=== PATIENT | male | born 1950 | race Caucasian/White ===

== ENCOUNTER → 2018-03-14 16:33 | Outpatient (CLI) | payer OTHER, SELFPAY ==
--- NOTE | 2018-03-14 16:39 | DI.MRI.S_ITS ---
PROCEDURE: MR THORACIC SPINE WO CON INDICATIONS: CERVICAL/THORCIC/LUMBAR STENOSIS TECHNIQUE: Noncontrast sagittal T1 spine echo and T2 fast spin echo, sagittal STIR, axial T1 and T2 fast spin echo through the thoracic spine. COMPARISON: None. FINDINGS: Image quality: Excellent. Alignment and Curvature: There is normal bony alignment. Bone Marrow: Marrow is of normal overall signal. No acute vertebral body compression fractures. Spinal Cord: Visualized spinal cord is normal in size and signal. Paraspinous Soft Tissues: There is a 20 mm diameter right adrenal nodule, which appears to demonstrate high signal intensity on T1 sequences. Miscellaneous: On multilevel disc desiccation is present throughout the thoracic spine. axial images, central canal and foramina appear widely patent at all scanned levels. IMPRESSION: 1. Multilevel degenerative disc disease. No significant canal, nor foraminal stenosis. No neural impingement. 2. 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 This could be confirmed with adrenal protocol MRI, if clinically indicated. Dictated by: Mckenna Mcginnis M.D. on 03/15/2018 at 13:00 Approved by: Mckenna Mcginnis M.D. on 03/15/2018 at 13:12
--- NOTE | 2018-03-14 16:47 | DI.MRI.S_ITS ---
PROCEDURE: MR LUMBAR SPINE WO CON INDICATIONS: LOW BACK PAIN TECHNIQUE: Noncontrast sagittal T1 spin echo and T2 fast echo, sagittal STIR, axial T1 and T2 fast spin echo through the lumbar spine. In cases with scoliosis, additional coronal T2 fast spin echo may be performed. COMPARISON: [facility], CR, SPINE LUMB MIN 4VW, 11/09/2016, 11:18. [facility], , L-SPINE WITHOUT CONTRAST, 12/10/2016, 8:56. FINDINGS: Image quality: Excellent. Alignment and Curvature: There is normal bony alignment. Bone Marrow: Marrow is of normal overall signal. No acute vertebral body compression fractures. There is mild reactive signal within the endplates adjacent to the L2-L3 and L3-L4 intervertebral discs. Spinal Cord: Conus medullaris terminates at the upper L1 level. Visualized cord demonstrates normal signal and size. Paraspinous Soft Tissues: No paravertebral masses. L1-L2: Disc desiccation and diffuse disc bulge. Increased, mild canal stenosis. Mild foraminal stenoses bilaterally, which is increased. L2-L3: Increased disc desiccation and diffuse disc bulge. Bilateral facet hypertrophy. Increased, mild canal stenosis. Increased, mild bilateral foraminal stenosis. L3-L4: Disc desiccation and diffuse disc bulge with superimposed broad-based right far lateral protrusion. Bilateral increased facet hypertrophy. Increased mild canal stenosis. No change in moderate right and mild left foraminal stenosis. L4-L5: Disc desiccation and diffuse disc bulge. Bilateral facet hypertrophy. Mild canal stenosis. Moderate foraminal stenoses bilaterally. No change. L5-S1: Disc desiccation and diffuse disc bulge, which is slightly increased. Bilateral facet hypertrophy. No change in mild canal stenosis. No change in moderate to severe left and moderate right foraminal stenosis. IMPRESSION: 1. Multilevel degenerative disc and facet disease. 2. Mild multilevel canal stenoses as above. 3. Multilevel foraminal stenoses as described above, worst on the right at L3-L4, bilaterally L4-L5, and at L5-S1. Dictated by: Mckenna Mcginnis M.D. on 03/15/2018 at 13:14 Approved by: Mckenna Mcginnis M.D. on 03/15/2018 at 13:19
--- NOTE | 2018-03-14 16:47 | DI.MRI.S_ITS ---
PROCEDURE: MR CERVICAL SPINE WO CON INDICATIONS: NECK PAIN TECHNIQUE: Noncontrast sagittal T1 spin echo and T2 fast spin echo, sagittal STIR, foraminal oblique sagittal T2 fast spin echo, and axial gradient echo or T2 fast spin echo through the cervical spine. COMPARISON: [facility], , C-SPINE WITHOUT CONTRAST, 12/27/2016, 7:08. FINDINGS: Image quality: Excellent. Alignment and Curvature: There is minimal grade 1 anterolisthesis of C5 on C6, as before, and otherwise normal bony alignment. Bone Marrow: Marrow demonstrates normal overall signal. Mild reactive signal within the endplates adjacent to the C2-C3, C3-C4, C4-C5, C5-C6, and C6-C7 intervertebral discs is present. Spinal Cord: Visualized spinal cord has normal size and signal. No cerebellar tonsillar herniation. Paraspinous Soft Tissues: No paravertebral masses. Prevertebral soft tissues are normal in thickness. C2-C3: Disc desiccation and mild facet hypertrophy bilaterally. Mild foraminal stenoses bilaterally. Minimal canal stenosis. No change. C3-C4: Congenital canal stenosis. Disc desiccation and diffuse disc bulge with superimposed right posterolateral protrusion/osteophyte. Bilateral facet and uncovertebral hypertrophy. There is overall moderate canal stenosis. There is moderate right and mild left foraminal stenosis, which is unchanged. C4-C5: Congenital canal stenosis. Left greater than right facet and uncovertebral hypertrophy. Disc desiccation and diffuse disc bulge. There is overall moderate canal stenosis. There is moderate to severe foraminal stenosis bilaterally. No change. C5-C6: Congenital canal stenosis. Disc desiccation and diffuse disc bulge. Bilateral facet and uncovertebral hypertrophy. Mild canal stenosis. Severe left and moderate right foraminal stenosis. No change. C6-C7: Congenital canal stenosis. Disc and loss and desiccation, as well as diffuse disc bulge. Bilateral facet and uncovertebral hypertrophy. Moderate canal stenosis. Severe left and moderate right foraminal stenosis. No change. C7-T1: Disc desiccation and diffuse disc bulge. Bilateral facet hypertrophy. Mild canal stenosis. Mild foraminal stenoses bilaterally. No change. IMPRESSION: 1. Diffuse congenital canal stenosis with superimposed disc and facet disease, as well as uncovertebral hypertrophy. 2. No change in multilevel moderate canal stenoses. 3. No change in multilevel moderate to severe foraminal stenoses. Dictated by: Mckenna Mcginnis M.D. on 03/15/2018 at 12:53 Approved by: Mckenna Mcginnis M.D. on 03/15/2018 at 12:59
== END ==
PROVIDERS: Family Provider Internal Medicine Cardiovascular Disease; PCP Family Medicine; Visit Provider Family Medicine
DX: M48.02 Spinal stenosis, cervical region (principal); M47.812 Spondylosis without myelopathy or radiculopathy, cervical region; M51.34 Other intervertebral disc degeneration, thoracic region; M51.36 Other intervertebral disc degeneration, lumbar region; M48.061 Spinal stenosis, lumbar region without neurogenic claudication; M99.73 Connective tissue and disc stenosis of intervertebral foramina of lumbar region
CPT/HCPCS: 72141; 72146; 72148

== ENCOUNTER → 2018-04-10 | Outpatient (CLI) | payer OTHER, SELFPAY ==
--- NOTE | 2018-04-10 10:04 | DI.MRI.S_ITS ---
PROCEDURE: MR ABDOMEN WO CON INDICATIONS: 67-year-old male with 20 mm right adrenal nodule on thoracic spine MRI. TECHNIQUE: Coronal HASTE, axial 2-D FLASH in- and [id number] with subtractions from the hepatic dome to the iliac crests. COMPARISON: [facility], MR, L-SPINE WITHOUT CONTRAST, 12/10/2016, 8:56. [facility], MR, MR THORACIC SPINE WO CON, 03/14/2018, 17:10. FINDINGS: Image quality: Excellent. Adrenal glands: The right and left adrenal glands appear normal. Specifically, a right adrenal nodule is not identified to corroborate previous examination finding. Other solid organs: Liver is normal in overall size, without fatty infiltration. Gallbladder contains a solitary 9 mm dependent gallstone. Biliary system is non dilated. Pancreas is normal in morphology. Spleen is normal in size. There is asymmetric moderate left renal atrophy, without hydronephrosis. Nodes and vessels: No retroperitoneal or mesenteric adenopathy by size criteria. Aorta and inferior vena cava are normal in size. Bowel and peritoneum: Unenhanced bowel loops are normal in caliber. No free fluid. Lung bases: No basal pleural effusions. Heart size is normal. Patient is status post fundoplication surgery. Bones and soft tissues: No ventral hernias. Bone marrow is of normal overall signal. IMPRESSION: 1. Current study does not demonstrate a discrete right adrenal nodule to correspond with previously reported finding. No further imaging followup is needed. 2. Solitary 9 mm dependent gallstone. 3. Asymmetric left renal cortical atrophy may reflect sequelae of remote pyelonephritis or chronic renal arterial insufficiency. Dictated by: Farhan Clark M.D. on 04/10/2018 at 11:43 Approved by: Farhan Clark M.D. on 04/10/2018 at 12:06
== END ==
PROVIDERS: Family Provider Internal Medicine Cardiovascular Disease; PCP Family Medicine; Visit Provider Family Medicine
DX: R93.8 Abnormal findings on diagnostic imaging of other specified body structures (principal); E27.9 Disorder of adrenal gland, unspecified
CPT/HCPCS: 74181

== ENCOUNTER 2018-04-13 10:30 | Outpatient (RCR) | payer OTHER, SELFPAY ==
--- NOTE | 2018-02-28 15:51 | PT.OTN ---
Current Diagnoses Bicipital tendinitis, unspecified shoulder (03/01/18) Transition note: On February 28, 2018 our therapy services consisting of Speech, Occupational, and Physical Therapy transitioned from the [employer] electronic documentation system to a new [employer] electronic documentation system.?? All documentation prior to February 28 can be found under [employer] saved data. From February 28 forward all medical record documentation will be in [employer] 6.1.
--- NOTE | 2018-03-01 13:58 | PT.OTN ---
Current Diagnoses Bicipital tendinitis, unspecified shoulder (03/01/18) Physical Therapy Treatment Note PT-OP-A Visit Information Start: 03/01/18 13:20 Freq: Status: Active Protocol: Activity Type Activity Date Activity User E-Sign Co-Sign Detail Recorded Client Recorded Date Recorded By Document 03/01/18 13:21 AMB [email or web address] 03/01/18 13:57 AMB 03/01/18 13:21 Out-Patient Physical Therapy Visit Information [Visit Information] -Visit Type Treatment Note -Visit Note 12 visits authorized, G codes: visit . Insurance authorization expires 04/25/18 . POC expires April 05. -Visit Start Time 10:30 -Visit Stop Time 11:20 -Total Visit Minutes 50 -Visit Number 2 [Evaluation Information] -Evaluation Date 02/22/18 PT-OP-C Subjective Start: 03/01/18 13:20 Freq: Status: Active Protocol: Activity Type Activity Date Activity User E-Sign Co-Sign Detail Recorded Client Recorded Date Recorded By Document 03/01/18 13:21 AMB [email or web address] 03/01/18 13:57 AMB 03/01/18 13:21 OP-PT Subjective [Patient Comments] -Patient Comments Patient states he is frustrated today because he has been on the phone for an hour and a half with [employer] insurance regarding his possible upcoming cervical surgery. He states that two days ago he woke up with L shoulder pain, insidious onset . His main complaint with his right shoulder is difficulty getting to sleep and staying asleep. -Patient Reported Progress Same PT-OP-Q Treatments Start: 03/01/18 13:20 Freq: Status: Active Protocol: Activity Type Activity Date Activity User E-Sign Co-Sign Detail Recorded Client Recorded Date Recorded By Document 03/01/18 13:21 AMB [email or web address] 03/01/18 13:57 AMB 03/01/18 13:21 Therapeutic Exercises [Sitting Exercises] 4 -Sitting Exercise Name Shoulder scaption -Side right -Resistance AROM -Reps/Minutes 2x10 -Comments shoulder height 3 -Sitting Exercise Name Shoulder flexion -Side right -Resistance AROM -Reps/Minutes 2x10 -Comments shoulder height 2 -Sitting Exercise Name Biceps curl -Side right -Resistance 5# -Reps/Minutes 2x10 1 -Sitting Exercise Name Haylee- flexion and abduction -Side bilateral -Reps/Minutes 5 minutes [Standing Exercises] 1 -Standing Exercise Name Shoulder isometrics -Side bilateral -Resistance moderate -Reps/Minutes 10 minutes -Comments shoulder extension, flexion, ER Therapeutic Activity [Therapeutic Activity] 1 -Name Sleep positioning/ propping with pillows -Reps/Minutes 5 Manual Therapy Treatment [Soft Tissue Mobilization] 1 -Body Location R Biceps -Mobilization Type Cross-Friction -Intensity/Depth Moderate -Body Position Supine [Joint Mobilizations] 1 -Joint glenohumeral -Direction AP, inferior -Grade III -Body Position Supine -Reps/Duration 5 minutes -Comments Left PT-OP-R Modalities Start: 03/01/18 13:20 Freq: Status: Active Protocol: Activity Type Activity Date Activity User E-Sign Co-Sign Detail Recorded Client Recorded Date Recorded By Document 03/01/18 13:57 AMB [email or web address] 03/01/18 13:58 AMB 03/01/18 13:57 Hot Pack/Cold Pack [Treatment] 1 -Location Bilateral shoulders -Patient Position Hooklying -Treatment Duration (minutes) 10 -Patient Tolerance Good -Comments cold pack PT-OP-T Assessment and Plan Start: 03/01/18 13:20 Freq: Status: Active Protocol: Activity Type Activity Date Activity User E-Sign Co-Sign Detail Recorded Client Recorded Date Recorded By Document 03/01/18 13:21 AMB [email or web address] 03/01/18 13:57 AMB 03/01/18 13:21 Physical Therapy Assessment [Assessment Summary] -Assessment Pt verbalizes doubt that PT will be especially helpful due to his concerns over his cervical spine. Encouraged him in icing and isometrics HEP to work toward less R shoulder pain with sleeping. Physical Therapy Plan [Next Visit Focus/Plan] -Next Visit Plan Progress HEP.
--- NOTE | 2018-03-07 08:51 | PT.OTN ---
Current Diagnoses Bicipital tendinitis, unspecified shoulder (03/06/18) Physical Therapy Treatment Note PT-OP-A Visit Information Start: 03/01/18 13:20 Freq: Status: Active Protocol: Activity Type Activity Date Activity User E-Sign Co-Sign Detail Recorded Client Recorded Date Recorded By Document 03/06/18 11:15 AMB [id number] 03/07/18 08:34 AMB 03/06/18 11:15 Out-Patient Physical Therapy Visit Information [Visit Information] -Visit Type Treatment Note -Visit Note POC ends 04/05, insurance auth ends 04/25. G code visit 01/07 . 12 visits authorized total. -Visit Start Time 11:15 -Visit Stop Time 12:00 -Total Visit Minutes 45 -Visit Number 3 [Evaluation Information] -Evaluation Date 02/22/18 PT-OP-C Subjective Start: 03/01/18 13:20 Freq: Status: Active Protocol: Activity Type Activity Date Activity User E-Sign Co-Sign Detail Recorded Client Recorded Date Recorded By Document 03/06/18 11:15 AMB [id number] 03/07/18 08:47 AMB 03/06/18 11:15 OP-PT Subjective [Patient Comments] -Patient Comments Patient states both his right and left shoulder have been irritated with all the lifting he is doing for his move. He is seeing an orthopedic surgeon tomorrow. -Patient Reported Progress Same PT-OP-Q Treatments Start: 03/01/18 13:20 Freq: Status: Active Protocol: Activity Type Activity Date Activity User E-Sign Co-Sign Detail Recorded Client Recorded Date Recorded By Document 03/06/18 11:15 AMB [email or web address] 03/07/18 08:42 AMB 03/06/18 11:15 Cardio Equipment [Upper Body Ergometer (UBE)] -Duration (Minutes) 5 Therapeutic Exercises [Supine Exercises] 1 -Supine Exercise Name scapular protraction -Resistance 2# -Reps/Minutes 2x10 [Sitting Exercises] 3 -Sitting Exercise Name Shoulder flexion -Side right -Resistance AROM -Reps/Minutes 2x10 -Comments shoulder height [Standing Exercises] 3 -Standing Exercise Name theraband shoulder ER -Side bilateral -Resistance #1 -Reps/Minutes 2x8 2 -Standing Exercise Name theraband shoulder extension -Side bilateral -Resistance #1 -Reps/Minutes 2x10 Manual Therapy Treatment [Soft Tissue Mobilization] 2 -Body Location L upper trapezius -Mobilization Type Sustained Pressure -Intensity/Depth Moderate -Body Position Supine 1 -Body Location R Biceps -Mobilization Type Cross-Friction -Intensity/Depth Moderate -Body Position Supine [Joint Mobilizations] 1 -Joint glenohumeral -Direction AP, inferior -Grade III -Body Position Supine -Reps/Duration 5 minutes -Comments Right PT-OP-R Modalities Start: 03/01/18 13:20 Freq: Status: Active Protocol: Activity Type Activity Date Activity User E-Sign Co-Sign Detail Recorded Client Recorded Date Recorded By Document 03/01/18 13:57 AMB [email or web address] 03/01/18 13:58 AMB 03/01/18 13:57 Hot Pack/Cold Pack [Treatment] 1 -Location Bilateral shoulders -Patient Position Hooklying -Treatment Duration (minutes) 10 -Patient Tolerance Good -Comments cold pack PT-OP-T Assessment and Plan Start: 03/01/18 13:20 Freq: Status: Active Protocol: Activity Type Activity Date Activity User E-Sign Co-Sign Detail Recorded Client Recorded Date Recorded By Document 03/06/18 11:15 AMB [email or web address] 03/07/18 08:50 AMB 03/06/18 11:15 Physical Therapy Assessment [Assessment Summary] -Assessment Pt continues to be painful in bilateral shoulders. More tendinitis in the R shoulder, and seems to be more upper trapezius on the L shoulder. Physical Therapy Plan [Next Visit Focus/Plan] -Next Visit Plan Follow up on pt 's MD appt.
--- NOTE | 2018-03-10 10:18 | PT.OTN ---
Current Diagnoses Bicipital tendinitis, unspecified shoulder (03/09/18) Physical Therapy Treatment Note PT-OP-A Visit Information Start: 03/01/18 13:20 Freq: Status: Active Protocol: Document 03/09/18 10:30 AMB (Rec: 03/09/18 10:38 AMB [id number]) Out-Patient Physical Therapy Visit Information Visit Information Visit Type Treatment Note Visit Note POC ends 04/05, insurance auth ends 04/25. G code visit 02/07. 12 visits authorized total. Visit Start Time 10:30 Visit Stop Time 11:15 Total Visit Minutes 45 Visit Number 4 Evaluation Information Evaluation Date 02/22/18 PT-OP-C Subjective Start: 03/01/18 13:20 Freq: Status: Active Protocol: Document 03/09/18 10:30 AMB (Rec: 03/09/18 10:38 AMB [id number]) OP-PT Subjective Patient Comments Patient Comments The patient states he just got a CPAP last night, so didn't sleep well. Getting an MRIs next week, then going to see the neurosurgeon afterwards. 01/07 L , 05/09 R. PT-OP-Q Treatments Start: 03/01/18 13:20 Freq: Status: Active Protocol: Document 03/09/18 10:30 AMB (Rec: 03/10/18 10:07 AMB [id number]) Cardio Equipment Upper Body Ergometer (UBE) Duration (Minutes) 5 Therapeutic Exercises Supine Exercises 1 Supine Exercise Name scapular protraction Resistance 2# Reps/Minutes 2x10 Sitting Exercises 3 Sitting Exercise Name Shoulder flexion Side right Resistance 2# Reps/Minutes 2x10 Comments shoulder height 2 Sitting Exercise Name Biceps curl Side right Resistance 5# Reps/Minutes 2x10 Standing Exercises 3 Standing Exercise Name theraband shoulder ER Side bilateral Resistance #1 Reps/Minutes 2x12 2 Standing Exercise Name theraband shoulder extension Side bilateral Resistance #1 Reps/Minutes 2x12 Manual Therapy Treatment Soft Tissue Mobilization 2 Body Location L upper trapezius Mobilization Type Sustained Pressure Intensity/Depth Moderate Body Position Supine 1 Body Location R Biceps Mobilization Type Cross-Friction Intensity/Depth Moderate Body Position Supine Joint Mobilizations 1 Joint glenohumeral Direction AP, inferior Grade III Body Position Supine Reps/Duration 5 minutes Comments Right PT-OP-R Modalities Start: 03/01/18 13:20 Freq: Status: Active Protocol: Document 03/09/18 10:30 AMB (Rec: 03/10/18 10:08 AMB [id number]) Hot Pack/Cold Pack Treatment 1 Location Bilateral shoulders Patient Position Hooklying Treatment Duration (minutes) 10 Patient Tolerance Good Comments cold pack PT-OP-T Assessment and Plan Start: 03/01/18 13:20 Freq: Status: Active Protocol: Document 03/09/18 10:30 AMB (Rec: 03/10/18 10:18 AMB [id number]) Physical Therapy Assessment Assessment Summary Assessment The patient tolerated a slight increase in resistance today. Continues to work on packing which aggravates his pain. Physical Therapy Plan Next Visit Focus/Plan Next Visit Plan Progress resistance exercises, reassess HEP.
--- NOTE | 2018-03-13 12:43 | PT.OTN ---
Current Diagnoses Bicipital tendinitis, unspecified shoulder (03/13/18) Physical Therapy Treatment Note PT-OP-A Visit Information Start: 03/01/18 13:20 Freq: Status: Active Protocol: Document 03/13/18 10:30 AMB (Rec: 03/13/18 10:30 AMB [id number]) Out-Patient Physical Therapy Visit Information Visit Information Visit Type Treatment Note Visit Note POC ends 04/05, insurance auth ends 04/25. G code visit 03/09. 12 visits authorized total. Visit Start Time 10:30 Visit Stop Time 11:15 Total Visit Minutes 45 Visit Number 5 PT-OP-C Subjective Start: 03/01/18 13:20 Freq: Status: Active Protocol: Document 03/13/18 10:34 AMB (Rec: 03/13/18 10:34 AMB [id number]) OP-PT Subjective Patient Comments Patient Comments Getting MRI tomorrow. PT-OP-Q Treatments Start: 03/01/18 13:20 Freq: Status: Active Protocol: Document 03/13/18 10:35 AMB (Rec: 03/13/18 11:11 AMB [id number]) Cardio Equipment Upper Body Ergometer (UBE) Duration (Minutes) 5 Therapeutic Exercises Supine Exercises 2 Supine Exercise Name Alternating isometrics Side right Reps/Minutes 2 x 10 1 Supine Exercise Name scapular protraction Resistance 2# Reps/Minutes 2x10 Sitting Exercises 3 Sitting Exercise Name Shoulder flexion Side right Resistance 2# Reps/Minutes 2x10 Comments shoulder height 2 Sitting Exercise Name Biceps curl Side right Resistance 5# Reps/Minutes 2x10 Standing Exercises 3 Standing Exercise Name theraband shoulder ER Side bilateral Resistance #1 Reps/Minutes 2x12 2 Standing Exercise Name theraband shoulder extension Side bilateral Resistance #1 Reps/Minutes 2x12 1 Standing Exercise Name Shoulder isometrics Side bilateral Resistance moderate Reps/Minutes 5 minutes Comments shoulder extension, flexion, ER, IR Manual Therapy Treatment Soft Tissue Mobilization 1 Body Location R Biceps Mobilization Type Cross-Friction Intensity/Depth Moderate Body Position Supine Joint Mobilizations 1 Joint glenohumeral Direction AP, inferior Grade III Body Position Supine Reps/Duration 5 minutes Comments Right Taping Kinesiotape Body Location R shoulder Type of Tape Kinesio Tape Comments Y to support GH joint, I to promote scapular retraction PT-OP-R Modalities Start: 03/01/18 13:20 Freq: Status: Active Protocol: Document 03/13/18 10:34 AMB (Rec: 03/13/18 12:34 AMB [email or web address]) Hot Pack/Cold Pack Treatment 1 Location Bilateral shoulders Patient Position Hooklying Treatment Duration (minutes) 10 Patient Tolerance Good Comments cold pack PT-OP-T Assessment and Plan Start: 03/01/18 13:20 Freq: Status: Active Protocol: Document 03/13/18 12:35 AMB (Rec: 03/13/18 12:43 AMB [email or web address]) Physical Therapy Assessment Assessment Summary Assessment Pt fatigues quickly with higher resistance shoulder strengthening. Continues to be flared up from moving furniture. Physical Therapy Plan Next Visit Focus/Plan Next Visit Plan Progress resistance exercises as tolerated
--- NOTE | 2018-03-16 13:22 | PT.OTN ---
Current Diagnoses Bicipital tendinitis, unspecified shoulder (03/16/18) Physical Therapy Treatment Note PT-OP-A Visit Information Start: 03/01/18 13:20 Freq: Status: Active Protocol: Document 03/16/18 10:30 AMB (Rec: 03/16/18 10:31 AMB [id number]) Out-Patient Physical Therapy Visit Information Visit Information Visit Type Treatment Note Visit Note POC ends 04/05, insurance auth ends 04/25. G code visit 04/09. 12 visits authorized total. Visit Start Time 10:30 Visit Stop Time 11:15 Total Visit Minutes 45 Visit Number 6 Evaluation Information Evaluation Date 02/22/18 PT-OP-C Subjective Start: 03/01/18 13:20 Freq: Status: Active Protocol: Document 03/16/18 10:30 AMB (Rec: 03/16/18 10:38 AMB [id number]) OP-PT Subjective Patient Comments Patient Comments The patient states that he had his MRI. PT-OP-Q Treatments Start: 03/01/18 13:20 Freq: Status: Active Protocol: Document 03/16/18 10:30 AMB (Rec: 03/16/18 13:22 AMB [email or web address]) Cardio Equipment Upper Body Ergometer (UBE) Duration (Minutes) 5 Therapeutic Exercises Sitting Exercises 2 Sitting Exercise Name Biceps curl Side right Resistance 5# Reps/Minutes 3x10 Standing Exercises 3 Standing Exercise Name theraband shoulder ER Side bilateral Resistance #1 Reps/Minutes 2x12 2 Standing Exercise Name theraband shoulder extension Side bilateral Resistance #1 Reps/Minutes 2x12 1 Standing Exercise Name Shoulder isometrics Side bilateral Resistance moderate Reps/Minutes 5 minutes Comments shoulder extension, flexion, ER, IR Manual Therapy Treatment Soft Tissue Mobilization 1 Body Location R Biceps Mobilization Type Cross-Friction Intensity/Depth Moderate Body Position Supine Joint Mobilizations 1 Joint glenohumeral Direction AP, inferior Grade III Body Position Supine Reps/Duration 5 minutes Comments Right PT-OP-R Modalities Start: 03/01/18 13:20 Freq: Status: Active Protocol: Document 03/16/18 13:22 AMB (Rec: 03/16/18 13:22 AMB [email or web address]) Hot Pack/Cold Pack Treatment 1 Location Bilateral shoulders Patient Position Hooklying Treatment Duration (minutes) 10 Patient Tolerance Good Comments cold pack PT-OP-T Assessment and Plan Start: 03/01/18 13:20 Freq: Status: Active Protocol: Document 03/16/18 10:30 AMB (Rec: 03/16/18 13:22 AMB [email or web address]) Physical Therapy Assessment Assessment Summary Assessment Pt continues to fatigue, but tolerated more reps today. Physical Therapy Plan Next Visit Focus/Plan Next Visit Plan Progress resistance exercises as tolerated
--- NOTE | 2018-03-20 15:11 | PT.OTN ---
Current Diagnoses Bicipital tendinitis, unspecified shoulder (03/20/18) Physical Therapy Treatment Note PT-OP-A Visit Information Start: 03/01/18 13:20 Freq: Status: Active Protocol: Document 03/20/18 12:57 AMB (Rec: 03/20/18 12:57 AMB [email or web address]) Out-Patient Physical Therapy Visit Information Visit Information Visit Type Treatment Note Visit Note POC ends 04/05, insurance auth ends 04/25. G code visit 04/09. 12 visits authorized total. Visit Start Time 13:00 Visit Stop Time 13:45 Total Visit Minutes 45 Visit Number 7 Evaluation Information Evaluation Date 02/22/18 PT-OP-C Subjective Start: 03/01/18 13:20 Freq: Status: Active Protocol: Document 03/20/18 13:00 AMB (Rec: 03/20/18 13:07 AMB [id number]) OP-PT Subjective Patient Comments Patient Comments The patient reports he has 6 bulging discs in this back/ neck. PT-OP-Q Treatments Start: 03/01/18 13:20 Freq: Status: Active Protocol: Document 03/20/18 13:00 AMB (Rec: 03/20/18 15:10 AMB [email or web address]) Cardio Equipment Upper Body Ergometer (UBE) Duration (Minutes) 5 Therapeutic Exercises Sitting Exercises 2 Sitting Exercise Name Biceps curl Side right Resistance 5# Reps/Minutes 3x10 Standing Exercises 3 Standing Exercise Name theraband shoulder ER Side bilateral Resistance #1 Reps/Minutes 2x12 2 Standing Exercise Name theraband shoulder extension Side bilateral Resistance #1 Reps/Minutes 2x12 1 Standing Exercise Name Shoulder isometrics Side bilateral Resistance moderate Reps/Minutes 5 minutes Comments shoulder extension, flexion, ER, IR Manual Therapy Treatment Soft Tissue Mobilization 1 Body Location R Biceps Mobilization Type Cross-Friction Intensity/Depth Moderate Body Position Supine Joint Mobilizations 1 Joint glenohumeral Direction AP, inferior Grade III Body Position Supine Reps/Duration 5 minutes Comments Right PT-OP-R Modalities Start: 03/01/18 13:20 Freq: Status: Active Protocol: Document 03/20/18 13:00 AMB (Rec: 03/20/18 15:11 AMB [email or web address]) Hot Pack/Cold Pack Treatment 1 Location Bilateral shoulders Patient Position Hooklying Treatment Duration (minutes) 10 Patient Tolerance Good Comments cold pack PT-OP-T Assessment and Plan Start: 03/01/18 13:20 Freq: Status: Active Protocol: Document 03/20/18 13:00 AMB (Rec: 03/20/18 15:10 AMB [email or web address]) Physical Therapy Assessment Assessment Summary Assessment Difficult to progress patient today as he was quite sore from his weekend packing Physical Therapy Plan Next Visit Focus/Plan Next Visit Plan Follow up on visit with neurosurgeon- are they pursuing surgery. Please Sign and Return: I have reviewed this Plan of Care and certify that the skilled therapy services above are required to meet the patient???s needs. Physician Signature Date Printed Name and Credentials Clinical Instructor Signature Printed Name and Credentials
--- NOTE | 2018-03-23 13:28 | PT.OTN ---
Current Diagnoses Bicipital tendinitis, left shoulder (03/23/18) Physical Therapy Treatment Note PT-OP-A Visit Information Start: 03/01/18 13:20 Freq: Status: Active Protocol: Document 03/23/18 10:30 AMB (Rec: 03/23/18 10:39 AMB [id number]) Out-Patient Physical Therapy Visit Information Visit Information Visit Type Treatment Note Visit Note POC ends 04/05, insurance auth ends 04/25. G code visit 06/09. 12 visits authorized total. Visit Start Time 10:30 Visit Stop Time 11:15 Total Visit Minutes 45 Visit Number 8 Evaluation Information Evaluation Date 02/22/18 PT-OP-C Subjective Start: 03/01/18 13:20 Freq: Status: Active Protocol: Document 03/23/18 10:30 AMB (Rec: 03/23/18 10:54 AMB [id number]) OP-PT Subjective Patient Comments Patient Comments Pt reports he is done moving things for the next week or so , then he will be moving furniture. PT-OP-Q Treatments Start: 03/01/18 13:20 Freq: Status: Active Protocol: Document 03/23/18 10:30 AMB (Rec: 03/23/18 13:26 AMB [email or web address]) Therapeutic Exercises Supine Exercises 1 Supine Exercise Name scapular protraction Resistance 2# Reps/Minutes 2x10 Sitting Exercises 2 Sitting Exercise Name Biceps curl Side bilateral Resistance 5# Reps/Minutes 3x10 Standing Exercises 3 Standing Exercise Name theraband shoulder ER Side bilateral Resistance #1 Reps/Minutes 2x12 2 Standing Exercise Name theraband shoulder extension Side bilateral Resistance #1 Reps/Minutes 2x12 1 Standing Exercise Name Shoulder isometrics Side bilateral Resistance moderate Reps/Minutes 5 minutes Comments shoulder extension, flexion, ER, IR Manual Therapy Treatment Soft Tissue Mobilization 1 Body Location R Biceps Mobilization Type Cross-Friction Intensity/Depth Moderate Body Position Supine Joint Mobilizations 1 Joint glenohumeral Direction AP, inferior Grade III Body Position Supine Reps/Duration 5 minutes Comments Right PT-OP-R Modalities Start: 03/01/18 13:20 Freq: Status: Active Protocol: Document 03/23/18 10:30 AMB (Rec: 03/23/18 13:26 AMB [email or web address]) Hot Pack/Cold Pack Treatment 1 Location Bilateral shoulders Patient Position Hooklying Treatment Duration (minutes) 10 Patient Tolerance Good Comments cold pack PT-OP-T Assessment and Plan Start: 03/01/18 13:20 Freq: Status: Active Protocol: Document 03/23/18 10:30 AMB (Rec: 03/23/18 13:21 AMB [email or web address]) Physical Therapy Assessment Assessment Summary Assessment Pt tolerating light strengthening, but overhead remains painful. Physical Therapy Plan Next Visit Focus/Plan Next Note Type Treatment Note Next Visit Plan Reassess HEP Please Sign and Return: I have reviewed this Plan of Care and certify that the skilled therapy services above are required to meet the patient???s needs. Physician Signature Date Printed Name and Credentials Clinical Instructor Signature Printed Name and Credentials
--- NOTE | 2018-03-30 16:08 | PT.OTN ---
Current Diagnoses Bicipital tendinitis, left shoulder (03/30/18) Physical Therapy Treatment Note PT-OP-A Visit Information Start: 03/01/18 13:20 Freq: Status: Active Protocol: Document 03/30/18 10:30 AMB (Rec: 03/30/18 10:39 AMB [id number]) Out-Patient Physical Therapy Visit Information Visit Information Visit Type Treatment Note Visit Note POC ends 04/05, insurance auth ends 04/25. G code visit 07/10. 12 visits authorized total. Visit Start Time 10:30 Visit Stop Time 11:15 Total Visit Minutes 45 Visit Number 9 Evaluation Information Evaluation Date 02/22/18 PT-OP-C Subjective Start: 03/01/18 13:20 Freq: Status: Active Protocol: Document 03/30/18 10:30 AMB (Rec: 03/30/18 13:45 AMB [email or web address]) OP-PT Subjective Patient Comments Patient Comments Pt met with neurologist who wants patient to see an OT at [facility]. The patient voices a lot of frustration with the process of getting surgery and being offered the same treatments for the last 20 years. PT-OP-Q Treatments Start: 03/01/18 13:20 Freq: Status: Active Protocol: Document 03/30/18 10:30 AMB (Rec: 03/30/18 13:45 AMB [email or web address]) Cardio Equipment Upper Body Ergometer (UBE) Duration (Minutes) 5 RPM 60 Therapeutic Exercises Sitting Exercises 2 Sitting Exercise Name Biceps curl Side bilateral Resistance 5# Reps/Minutes 3x10 Standing Exercises 4 Standing Exercise Name Body blade Side bilateral Comments flexion to 90 3 Standing Exercise Name theraband shoulder ER Side bilateral Resistance #1 Reps/Minutes 2x12 2 Standing Exercise Name theraband shoulder extension Side bilateral Resistance #1 Reps/Minutes 2x12 Manual Therapy Treatment Soft Tissue Mobilization 1 Body Location R Biceps Mobilization Type Cross-Friction Intensity/Depth Moderate Body Position Supine Joint Mobilizations 1 Joint glenohumeral Direction AP, inferior Grade III Body Position Supine Reps/Duration 5 minutes Comments Right PT-OP-R Modalities Start: 03/01/18 13:20 Freq: Status: Active Protocol: Document 03/30/18 10:30 AMB (Rec: 03/30/18 13:45 AMB [email or web address]) Hot Pack/Cold Pack Treatment 1 Location Bilateral shoulders Patient Position Hooklying Treatment Duration (minutes) 10 Patient Tolerance Good Comments cold pack PT-OP-T Assessment and Plan Start: 03/01/18 13:20 Freq: Status: Active Protocol: Document 03/30/18 10:30 AMB (Rec: 03/30/18 13:45 AMB [email or web address]) Physical Therapy Assessment Assessment Summary Assessment The patient continues to have pain bilaterally. Physical Therapy Plan Next Visit Focus/Plan Next Note Type Treatment Note Next Visit Plan Continue to push HEP. Please Sign and Return: I have reviewed this Plan of Care and certify that the skilled therapy services above are required to meet the patient?s needs. Physician Signature Date Printed Name and Credentials Clinical Instructor Signature Printed Name and Credentials
--- NOTE | 2018-04-03 15:36 | PT.OTN ---
Current Diagnoses Bicipital tendinitis, left shoulder (04/03/18) Physical Therapy Treatment Note PT-OP-A Visit Information Start: 03/01/18 13:20 Freq: Status: Active Protocol: Document 04/03/18 10:30 AMB (Rec: 04/03/18 10:40 AMB [id number]) Out-Patient Physical Therapy Visit Information Visit Information Visit Type Treatment Note Visit Note POC ends 04/05, insurance auth ends 04/25. G code visit 08/09 . 12 visits authorized total. Visit Start Time 10:30 Visit Stop Time 11:15 Total Visit Minutes 45 Visit Number 10 Evaluation Information Evaluation Date 02/22/18 PT-OP-C Subjective Start: 03/01/18 13:20 Freq: Status: Active Protocol: Document 04/03/18 10:30 AMB (Rec: 04/03/18 10:40 AMB [id number]) OP-PT Subjective Patient Comments Patient Comments The pt reports he is finished with the moving. Hurting in both shoulders today. PT-OP-Q Treatments Start: 03/01/18 13:20 Freq: Status: Active Protocol: Document 04/03/18 10:30 AMB (Rec: 04/03/18 12:56 AMB [email or web address]) Therapeutic Exercises Prone Exercises 1 Prone Exercise Name Y, T AROM on therapy ball Reps/Minutes 10 Sitting Exercises 2 Sitting Exercise Name Biceps curl Side bilateral Resistance 5# Reps/Minutes 3x10 Standing Exercises 4 Standing Exercise Name Body blade Side bilateral Comments flexion to 90 3 Standing Exercise Name theraband shoulder ER Side bilateral Resistance #1 Reps/Minutes 2x12 2 Standing Exercise Name theraband shoulder extension Side bilateral Resistance #2 Reps/Minutes 2x12 Manual Therapy Treatment Soft Tissue Mobilization 1 Body Location R Biceps Mobilization Type Cross-Friction Intensity/Depth Moderate Body Position Supine Joint Mobilizations 1 Joint glenohumeral Direction AP, inferior Grade III Body Position Supine Reps/Duration 5 minutes Comments Right PT-OP-R Modalities Start: 03/01/18 13:20 Freq: Status: Active Protocol: Document 04/03/18 10:30 AMB (Rec: 04/03/18 12:56 AMB [email or web address]) Hot Pack/Cold Pack Treatment 1 Location Bilateral shoulders Patient Position Hooklying Treatment Duration (minutes) 10 Patient Tolerance Good Comments cold pack PT-OP-T Assessment and Plan Start: 03/01/18 13:20 Freq: Status: Active Protocol: Document 04/03/18 10:30 AMB (Rec: 04/03/18 15:33 AMB [email or web address]) Physical Therapy Assessment Assessment Summary Assessment Pt continues to voice feelings that only surgery will fix him. He does have increased back pain today. Physical Therapy Plan Next Visit Focus/Plan Next Note Type Treatment Note Next Visit Plan Finalize HEP. Please Sign and Return: I have reviewed this Plan of Care and certify that the skilled therapy services above are required to meet the patient?s needs. Physician Signature Date Printed Name and Credentials Clinical Instructor Signature Printed Name and Credentials
--- NOTE | 2018-04-06 14:29 | PT.OTN ---
Current Diagnoses Bicipital tendinitis, left shoulder (04/06/18) Physical Therapy Treatment Note PT-OP-A Visit Information Start: 03/01/18 13:20 Freq: Status: Active Protocol: Document 04/06/18 10:30 AMB (Rec: 04/06/18 10:54 AMB [id number]) Out-Patient Physical Therapy Visit Information Visit Information Visit Type Progress Note Visit Start Time 10:30 Visit Stop Time 11:15 Total Visit Minutes 45 Visit Number 11 Evaluation Information Evaluation Date 02/22/18 PT-OP-C Subjective Start: 03/01/18 13:20 Freq: Status: Active Protocol: Document 04/03/18 10:30 AMB (Rec: 04/03/18 10:40 AMB [id number]) OP-PT Subjective Patient Comments Patient Comments The pt reports he is finished with the moving. Hurting in both shoulders today. PT-OP-K Range of Motion Start: 04/06/18 11:00 Freq: Status: Active Protocol: Document 04/06/18 11:00 AMB (Rec: 04/06/18 11:03 AMB [id number]) Shoulder Goniometric Range of Motion Shoulder Measured in Degrees Left Active Flexion 155 Abduction 100 Right Flexion 145 Abduction 100 PT-OP-Q Treatments Start: 03/01/18 13:20 Freq: Status: Active Protocol: Document 04/06/18 10:30 AMB (Rec: 04/06/18 14:26 AMB [email or web address]) Cardio Equipment Upper Body Ergometer (UBE) Duration (Minutes) 5 RPM 60 Therapeutic Exercises Sitting Exercises 2 Sitting Exercise Name Biceps curl Side bilateral Resistance 5# Reps/Minutes 3x10 Standing Exercises 4 Standing Exercise Name Body blade Side bilateral Comments abduction to 90 3 Standing Exercise Name theraband shoulder ER Side bilateral Resistance #1 Reps/Minutes 2x12 2 Standing Exercise Name theraband shoulder extension Side bilateral Resistance #2 Reps/Minutes 2x12 Manual Therapy Treatment Soft Tissue Mobilization 1 Body Location L Biceps Mobilization Type Cross-Friction Intensity/Depth Moderate Body Position Supine Joint Mobilizations 1 Joint glenohumeral Direction AP, inferior Grade III Body Position Supine Reps/Duration 5 minutes Comments Right PT-OP-R Modalities Start: 03/01/18 13:20 Freq: Status: Active Protocol: Document 04/03/18 10:30 AMB (Rec: 04/03/18 12:56 AMB [email or web address]) Hot Pack/Cold Pack Treatment 1 Location Bilateral shoulders Patient Position Hooklying Treatment Duration (minutes) 10 Patient Tolerance Good Comments cold pack PT-OP-T Assessment and Plan Start: 03/01/18 13:20 Freq: Status: Active Protocol: Document 04/06/18 10:30 AMB (Rec: 04/06/18 14:23 AMB [email or web address]) Physical Therapy Assessment Goals 3 Impairment Posture Short Term Goal (STG) Decreased forward head, rounded shoulders to trace levels. STG Duration 4 weeks 2 Impairment Pain Short Term Goal (STG) The patient will decrease his pain to 2/10. STG Duration 4 weeks Client Evaluator Goal (LTG) The patient will have no tenderness throughout his shoulder with palpation. LTG Duration 8 weeks 1 Impairment Strength and ROM Short Term Goal (STG) The patient will improve to 4+ /5 strength on all planes of right shoulder movement. STG Duration 4 weeks Skilled Nursing Goal (LTG) The patient will improve his active range of motion bilaterally to 180 degrees. LTG Duration 6 weeks Assessment Summary Assessment During physical therapy treatment the patient has been very focused on his low back pain and is hoping for surgery for that. He is concerned that his neck is impacting his shoulder pain. While he has not been able to tolerate some exercises because of his thoracic spine pain, neck movement does not reproduce his shoulder pain generally. He has developed bilateral shoulder pain and feels that his left shoulder pain is fairly equal to his right shoulder pain at this time. The patient has been moving and this has continued his pain, he is not especially consistent with his HEP. He will benefit from 1 more appointment to try to work on his HEP more. Physical Therapy Plan Next Visit Focus/Plan Next Note Type Discharge Summary Please Sign and Return: I have reviewed this Plan of Care and certify that the skilled therapy services above are required to meet the patient?s needs. Physician Signature Date Printed Name and Credentials Clinical Instructor Signature Printed Name and Credentials
--- NOTE | 2018-04-14 15:54 | PT.OTN ---
Current Diagnoses Bicipital tendinitis, left shoulder (04/13/18) Physical Therapy Treatment Note PT-OP-A Visit Information Start: 03/01/18 13:20 Freq: Status: Active Protocol: Document 04/13/18 10:30 AMB (Rec: 04/13/18 10:39 AMB [id number]) Out-Patient Physical Therapy Visit Information Visit Information Visit Type Discharge Summary Visit Start Time 10:30 Visit Stop Time 11:15 Total Visit Minutes 45 Visit Number 12 Evaluation Information Evaluation Date 02/22/18 PT-OP-C Subjective Start: 03/01/18 13:20 Freq: Status: Active Protocol: Document 04/13/18 10:30 AMB (Rec: 04/13/18 10:39 AMB [id number]) OP-PT Subjective Patient Comments Patient Comments Pt reports stomach MRI is fine , the shoulders are about the same. PT-OP-K Range of Motion Start: 04/06/18 11:00 Freq: Status: Active Protocol: Document 04/06/18 11:00 AMB (Rec: 04/06/18 11:03 AMB [id number]) Shoulder Goniometric Range of Motion Shoulder Measured in Degrees Left Active Flexion 155 Abduction 100 Right Flexion 145 Abduction 100 PT-OP-Q Treatments Start: 03/01/18 13:20 Freq: Status: Active Protocol: Document 04/13/18 10:30 AMB (Rec: 04/14/18 15:53 AMB [email or web address]) Cardio Equipment Upper Body Ergometer (UBE) Duration (Minutes) 5 RPM 60 Therapeutic Exercises Sitting Exercises 2 Sitting Exercise Name Biceps curl Side bilateral Resistance 5# Reps/Minutes 3x10 Standing Exercises 3 Standing Exercise Name theraband shoulder ER Side bilateral Resistance #1 Reps/Minutes 2x12 2 Standing Exercise Name theraband shoulder extension Side bilateral Resistance #2 Reps/Minutes 2x12 Manual Therapy Treatment Soft Tissue Mobilization 1 Body Location L/R Biceps Mobilization Type Cross-Friction Intensity/Depth Moderate Body Position Supine Joint Mobilizations 1 Joint glenohumeral Direction AP, inferior Grade III Body Position Supine Reps/Duration 5 minutes Comments Right PT-OP-R Modalities Start: 03/01/18 13:20 Freq: Status: Active Protocol: Document 04/03/18 10:30 AMB (Rec: 04/03/18 12:56 AMB [email or web address]) Hot Pack/Cold Pack Treatment 1 Location Bilateral shoulders Patient Position Hooklying Treatment Duration (minutes) 10 Patient Tolerance Good Comments cold pack PT-OP-T Assessment and Plan Start: 03/01/18 13:20 Freq: Status: Active Protocol: Document 04/13/18 10:30 AMB (Rec: 04/13/18 10:51 AMB [id number]) Physical Therapy Assessment Goals 3 Impairment Posture Short Term Goal (STG) Decreased forward head, rounded shoulders to trace levels. NOT MET STG Duration 4 weeks 2 Impairment Pain Short Term Goal (STG) The patient will decrease his pain to 2/10. NOT MET STG Duration 4 weeks Bleach Machine Operator Goal (LTG) The patient will have no tenderness throughout his shoulder with palpation. NOT MET LTG Duration 8 weeks 1 Impairment Strength and ROM Short Term Goal (STG) The patient will improve to 4+ /5 strength on all planes of right shoulder movement. NOT MET STG Duration 4 weeks [facility] Goal (LTG) The patient will improve his active range of motion bilaterally to 180 degrees. NOT MET LTG Duration 6 weeks Assessment Summary Assessment Sharp pain can come out of nowhere . Currently 0/10 pain in shoulder when not using it. But pain can get up to 10/10 intermittently. Physical Therapy Plan Discharge Physical Therapy Discharge Reasons Plateau in Progress Discharge Comments Patient requests discharge at end of insurance authorization due to no significant change in pain report. Please Sign and Return: I have reviewed this Plan of Care and certify that the skilled therapy services above are required to meet the patient?s needs. Physician Signature Date Printed Name and Credentials Clinical Instructor Signature Printed Name and Credentials
--- NOTE | 2018-04-14 15:55 | PT.OPDS ---
Current Diagnoses Bicipital tendinitis, left shoulder (04/13/18) Provider Visit Care Team Role Provider Type [place] MD Family Provider Physician Specialty: Cardiology Address: [address] [place] [address] [address], [place], [address] Email: Faby Carpio DO Attending Provider Physician Primary Care Provider Specialty: Family Practice Address: [address] [place] [address] [address], [place], [address] Email: [email or web address] Visit Number Visit Number 12 Discharge Summary PT-OP-C Subjective Start: 03/01/18 13:20 Freq: Status: Active Protocol: Document 04/13/18 10:30 AMB (Rec: 04/13/18 10:39 AMB [id number]) OP-PT Subjective Patient Comments Patient Comments Pt reports stomach MRI is fine , the shoulders are about the same. PT-OP-K Range of Motion Start: 04/06/18 11:00 Freq: Status: Active Protocol: Document 04/06/18 11:00 AMB (Rec: 04/06/18 11:03 AMB [id number]) Shoulder Goniometric Range of Motion Shoulder Measured in Degrees Left Active Flexion 155 Abduction 100 Right Flexion 145 Abduction 100 PT-OP-T Assessment and Plan Start: 03/01/18 13:20 Freq: Status: Active Protocol: Document 04/13/18 10:30 AMB (Rec: 04/13/18 10:51 AMB [id number]) Physical Therapy Assessment Goals 3 Impairment Posture Short Term Goal (STG) Decreased forward head, rounded shoulders to trace levels. NOT MET STG Duration 4 weeks 2 Impairment Pain Short Term Goal (STG) The patient will decrease his pain to 2/10. NOT MET STG Duration 4 weeks Jail Goal (LTG) The patient will have no tenderness throughout his shoulder with palpation. NOT MET LTG Duration 8 weeks 1 Impairment Strength and ROM Short Term Goal (STG) The patient will improve to 4+ /5 strength on all planes of right shoulder movement. NOT MET STG Duration 4 weeks Jail Goal (LTG) The patient will improve his active range of motion bilaterally to 180 degrees. NOT MET LTG Duration 6 weeks Assessment Summary Assessment Sharp pain can come out of nowhere . Currently 0/10 pain in shoulder when not using it. But pain can get up to 10/10 intermittently. Physical Therapy Plan Discharge Physical Therapy Discharge Reasons Plateau in Progress Discharge Comments Patient requests discharge at end of insurance authorization due to no significant change in pain report.
== END 2018-04-20 10:59 ==
LOC: PHYS 10:30
PROVIDERS: Family Provider Internal Medicine Cardiovascular Disease; PCP Family Medicine; Visit Provider Family Medicine
DX: M75.22 Bicipital tendinitis, left shoulder (principal)
CPT/HCPCS: 97010; 97110; 97140

== ENCOUNTER → 2018-09-22 12:05 | Outpatient (CLI) | payer OTHER, SELFPAY ==
[2018-09-22 13:15] LABS: Alanine Aminotransferase 39 IU/L (21-72); Albumin 4.3 g/dL (3.5-5.0); Albumin Globulin Ratio 1.4 (1.0-2.8); Alkaline Phosphatase 89 U/L (38-126); Aspartate Aminotransferase 32 IU/L (17-59); BUN Creatinine Ratio 14.5 (6-22); Bilirubin Total 0.4 mg/dL (0.2-1.3); Blood Urea Nitrogen 16 mg/dL (9-20); Calcium 9.2 mg/dL (8.4-10.2); Carbon Dioxide 25 mmol/L (22-32); Chloride 106 mmol/L (98-107); Cholesterol 151 mg/dL (140-199); Estimated Glomerular Filt Rate > 60.0 mL/min (>60); Glucose 88 mg/dL (80-110); HDL Cholesterol 31 mg/dL (40-60); HEMOLYSIS < 15 (0-50); LDL Cholesterol Calculated 86 mg/dL (<100); Potassium 3.4 mmol/L (3.4-5.1); Sodium 145 mmol/L (137-145); Total Protein 7.3 g/dL (6.3-8.2); Triglycerides 172 mg/dL (35-150)
== END ==
PROVIDERS: Family Provider Internal Medicine Cardiovascular Disease; PCP Family Medicine; Visit Provider Internal Medicine Cardiovascular Disease
DX: I25.10 Atherosclerotic heart disease of native coronary artery without angina pectoris (principal)
CPT/HCPCS: 36415; 80053; 80061

== ENCOUNTER → 2019-01-03 09:04 | Outpatient (CLI) | payer OTHER, SELFPAY ==
--- NOTE | 2019-01-03 | DI.RAD.S_ITS ---
PROCEDURE: XR LUMBAR SPINE 2-3V INDICATIONS: FALL FROM GROUND LEVEL, RIGHT HIP PAIN TECHNIQUE: 3 views of the lumbar spine were acquired. COMPARISON: None. FINDINGS: Bones: 5 [id number] vertebrae are present. There is normal bony alignment. No vertebral body compression fractures. No suspicious bony lesions. Mild degenerative disc disease is indicated by slight disc height reduction at L4-L5. Soft tissues: Overlying bowel gas pattern is normal. No suspicious soft tissue calcifications. IMPRESSION: Minimal degenerative changes along the L-spine is seen at L4-5 where slight disc height reduction is present. Dictated by: Jose Pacheco M.D. on 01/03/2019 at 10:25 Approved by: Jose Pacheco M.D. on 01/03/2019 at 10:25
--- NOTE | 2019-01-03 | DI.RAD.S_ITS ---
PROCEDURE: XR HIP W PEL IF DONE LT MIN 4V INDICATIONS: FALL FROM GROUND LEVEL, RIGHT HIP PAIN TECHNIQUE: AP pelvis with lateral view(s) of the bilateral hips. COMPARISON: [facility], , [id number] W PEL IF PERFORMED, 12/28/2017, 10:18. FINDINGS: Bones: No fractures or dislocations. Pelvic ring appears intact. No suspicious bony lesions. Mild symmetric thinning of the joint interspace, consistent with mild osteoarthritis. Soft tissues: The visualized bowel gas pattern is normal. No suspicious soft tissue calcifications. IMPRESSION: Mild symmetric hip joint osteoarthritis, no trauma found. Dictated by: Jose Pacheco M.D. on 01/03/2019 at 10:24 Approved by: Jose Pacheco M.D. on 01/03/2019 at 10:25
== END ==
PROVIDERS: PCP Family Medicine; Visit Provider Physician Assistant
DX: M25.551 Pain in right hip (principal); M16.11 Unilateral primary osteoarthritis, right hip
CPT/HCPCS: 72100; 73522

== ENCOUNTER → 2019-01-31 10:49 | Outpatient (CLI) | payer OTHER, SELFPAY ==
[2019-01-31 12:36] LABS: Albumin 4.6 g/dL (3.5-5.0); BUN Creatinine Ratio 13.6 (6-22); Blood Urea Nitrogen 15 mg/dL (9-20); Calcium 9.1 mg/dL (8.4-10.2); Carbon Dioxide 19 mmol/L (22-32); Chloride 104 mmol/L (98-107); Estimated Glomerular Filt Rate > 60.0 mL/min (>60); Glucose 242 mg/dL (80-110); HEMOLYSIS < 15 (0-50); Phosphorous 3.9 mg/dL (2.3-3.7); Sodium 140 mmol/L (137-145)
== END ==
PROVIDERS: PCP Family Medicine; Visit Provider Physician Assistant
DX: M54.16 Radiculopathy, lumbar region (principal)
CPT/HCPCS: 36415; 80069

== ENCOUNTER → 2019-02-12 10:46 | Outpatient (CLI) | payer OTHER, SELFPAY ==
--- NOTE | 2019-02-12 | DI.MRI.S_ITS ---
PROCEDURE: MR LUMBAR SPINE WO/W CON INDICATIONS: Radiculopathy, lumbar region TECHNIQUE: Noncontrast sagittal T1 spin echo and T2 fast spin echo, sagittal STIR, axial T1 and T2 fast spin echo through the lumbar spine. In cases with scoliosis, additional coronal T2 fast spin echo may be performed. After the administration of contrast, sagittal and axial T1 spin echo with fat saturation through the lumbar spine. COMPARISON: [facility], CR, XR LUMBAR SPINE 2-3V, 01/03/2019, 9:19. [facility], MR, L-SPINE WITHOUT CONTRAST, 12/10/2016, 8:56. [facility], MR, MR LUMBAR SPINE WO CON, 03/14/2018, 17:23. FINDINGS: Image quality: Excellent. Alignment and curvature: Mild levoconvex scoliotic curvature is noted. Marrow: Marrow is of normal overall signal. No acute vertebral body compression fractures. No suspicious marrow enhancement. Spinal cord: Conus medullaris terminates at the T12-L1 level. Visualized spinal cord demonstrates normal signal, without suspicious enhancement. Paraspinous soft tissues: No paravertebral masses are seen. Within the posterior postoperative bed, there are areas of rim-enhancing fluid seen with generalized increased enhancement. T12-L1: Normal appearance. L1-L2: The disc height and disc signal are relatively well-preserved. Mild facet joint hypertrophy is seen. [id number] bilateral neural foraminal narrowing is seen. Minimal central canal narrowing is seen. When comparison is made with the prior examination, these findings are similar. L2-L3: The disc height is well-preserved. Loss of disc signal is seen at this level. Mild generalized disc bulge is seen. Mild bilateral neural foraminal narrowing is seen. Mild central canal narrowing is seen. No significant change from the prior. L3-L4: The disc height is well-preserved. Loss of disc signal is seen at this level. Moderate generalized disc bulge is seen. Moderate facet joint hypertrophy is seen. There is at least moderate bilateral neural foraminal narrowing seen, left worse than right. There is a degree of compression seen upon the exiting nerve roots. Mild to moderate central canal narrowing is seen. When comparison is made with the prior examination, these findings are similar. L4-L5: The disc height is well-preserved. Loss of disc signal is seen at this level. Moderate generalized disc bulge is seen. Postoperative changes are seen, with left hemilaminectomy. Enhancing dural fibrosis is seen at this level. There is moderate to severe left-sided and at least moderate right-sided neural foraminal narrowing seen. There is a degree of compression seen upon the exiting nerve roots. The central canal is widely patent. The degree of central canal narrowing has improved compared to the preoperative MRI. L5-S1: The disc height is well-preserved. Loss of disc signal is seen at this level. Mild generalized disc bulge is seen. Mild facet joint hypertrophy is seen. Moderate to severe bilateral neural foraminal narrowing is seen, left worse than right. There is a degree of compression seen upon the exiting nerve roots. Mild central canal narrowing is seen. Stable from the prior study. IMPRESSION: Postoperative change with left hemilaminectomy at L4-L5. There is enhancement seen within the postoperative bed, which is felt most likely to be within postoperative limits. Differential diagnosis includes rim enhancing soft tissue abscess collections, yet this is considered to be less likely. Improvement in the degree of central canal narrowing at L4-L5. Multiple levels of degenerative change are seen, which are otherwise not significantly changed compared to 2018. Enhancing dural fibrosis can be seen at L4-L5. Dictated by: Demetrius Tony M.D. on 02/12/2019 at 14:00 Approved by: Demetrius Tony M.D. on 02/12/2019 at 14:09
== END ==
PROVIDERS: PCP Family Medicine; Visit Provider Physician Assistant
DX: M47.26 Other spondylosis with radiculopathy, lumbar region (principal); M47.27 Other spondylosis with radiculopathy, lumbosacral region; M48.061 Spinal stenosis, lumbar region without neurogenic claudication; M48.07 Spinal stenosis, lumbosacral region
CPT/HCPCS: 72158; A9579

== ENCOUNTER 2019-02-21 08:06 | Outpatient (CLI) | payer OTHER, SELFPAY ==
[2019-02-21] VITALS (8 sets, daily range): BP systolic 109–156; BP diastolic 66–89; PULSE 57–66; RESP 15–18; TEMP 36.3; O2SAT 95–98
--- NOTE | 2019-02-21 08:07 | DI.RAD.S_ITS ---
PROCEDURE: PAIN L/S TRANSFORAMINAL INJECT INDICATIONS: LOW BACK PAIN FINDINGS: Fluoroscopic spot filming was performed to verify placement of spinal needles at the right L3-4 neural foramen level(s), as labeled on the films. Appropriate location(s) of the needle tip(s) was confirmed by injection of iodinated contrast. IMPRESSION: Successful right L3-4 needle tip localization for transforaminal epidural steroid injection. Dictated by: Jose Pacheco M.D. on 02/21/2019 at 11:14 Approved by: Jose Pacheco M.D. on 02/21/2019 at 11:14
[2019-02-21] MEDS: MIDAZOLAM 5 MG/5 ML VIAL IV (09:40)
[2019-02-21] MEDS: fentaNYL 100 MCG/2 ML INJ 50 MCG IV (09:46)
[2019-02-21] MEDS: DEXAMETHASONE 10 MG/ML VIAL 20 MG INJ (09:50)
[2019-02-21] MEDS: IOPAMIDOL 15 ML VIAL 3 ML INJ (09:50)
[2019-02-21] MEDS: BETAMETHASONE 30 MG/5 ML MDV 6 MG INJ (09:50)
[2019-02-21] MEDS: BUPIVACAINE 0.25% (PF) VIAL 2 ML INJ (09:50)
--- NOTE | 2019-02-21 09:54 | PC.NURSE ---
Pt tolerated procedure well. Able to get off the table with standby assist. Transferred pt to pre procedure room via wheelchair for continued monitoring with Elizabeth JAMES.
--- NOTE | 2019-02-21 09:58 | PM.PROC.1 ---
Procedures Date/Time Date of procedure: 02/21/19 Time of procedure: 09:58 General Procedure description: PROVIDER: Marcelino Torres DO Operative Note PREOP DIAGNOSIS 1. FORAMINAL STENOSIS WITH LE SYMPTOMS, POST OP DIAGNOSIS 1. FORAMINAL STENOSIS WITH LE SYMPTOMS, PROCEDURES 1. FLUOROSCOPICALLY GUIDED CONTRAST CONTROLLED TRANSFORAMINAL EPIDURAL STEROID INJECTION - RIGHT L3 SNRB SURGEON: Marcelino Torres, INDICATIONS Catrachito is referred by Dr. Carpio for treatment of Foraminal Stenosis with right LE Symptoms FINDINGS Foraminal Nerve Root Compression secondary to disc disease and facet hypertrophy DESCRIPTION OF PROCEDURE Following denial of allergy and review of potential side effects and complications, including, but not necessarily limited to, infection, allergic reaction, local tissue breakdown, stroke, temporary or permanent nerve injury, paralysis, and possible , the patient indicated that the patient understood and agreed to proceed. An informed consent document was signed by the patient, witnessed by a nurse, and placed in the patient's chart. Additionally, other treatment options including medications, modalities, and physical therapy were reviewed with the patient. After review of previous anaesthesic history and IV conscious sedation the patient was deemed safe to proceed with todays procedure with IV conscious sedation as ASA class II designation. Safety time-out was performed to confirm patient ID, procedure to be performed and site of procedure. IV sedation was accomplished with a combination of 3mg of Versed and 50mcg of Fentanyl was administered by the RN after DO order, titrated to patient comfort during the course of the procedure while the patient remained responsive to all verbal commands In the prone position following sterile prep and drape of the lumbar region, the right L3/4 posterior neuroforamen was identified fluoroscopically. The skin was anesthetized via a 25-gauge 1.5-inch needle with 1% lidocaine solution. At this point, a 25-gauge 3.5-inch spinal needle was atraumatically introduced and advanced under fluoroscopic guidance through the posterior right L3/4 neuroforamen to approximately the anterior aspect of the canal. Depth was confirmed on lateral view. Following negative aspiration, injection of approximately 1.5 cc of Isovue 200 under live fluoroscopy in the AP view confirmed excellent flow along the nerve root, into the epidural space without vascular or intrathecal uptake observed Radiological data, including multiple fluoroscopic views of the lumbosacral spine, reveal a spinal needle at the right L3/4 posterior neuroforamen. Subsequent views show flow of contrast material flowing superiorly and inferiorly along the nerve root confirming epidural flow. Subsequently, a test dose of 1.5 cc of 1% lidocaine solution was administered and patient was observed for two minutes for signs or symptoms of complications, including abdominal pain, shortness of breath, bilateral upper or lower extremity weakness, nausea and vomiting, prior to steroid injection. At this point, a total of 2cc or 20mg of dexamethasone was injected without incident. The patient tolerated the procedure well without signs or symptoms of complications prior to transfer to the recovery area continued monitoring without incident. The patient was then transferred to the recovery area where they were observed for an appropriate time after the injection. The patient reported a VAS score of 7 prior to the procedure and a post-procedure VAS of 0. Total Fluoroscopy Time: 24.2 seconds Total Conscious Sedation Time: 24min POST OP INSTRUCTIONS The patient was provided a Pain Log to continue to record their response to the target-specific procedure prior to follow-up visit with their referring physician. Additionally, specific post-injection care instructions and a contact number to our office were provided if concerns arise regarding possible complications associated with the procedure are suspected. Marcelino Torres, DO Complications: none
== END 2019-02-21 10:22 | disposition home or self-care (01) ==
LOC: RAD 08:07
PROVIDERS: PCP Family Medicine; Visit Provider Physical Medicine & Rehabilitation
DX: M48.061 Spinal stenosis, lumbar region without neurogenic claudication (principal); M51.16 Intervertebral disc disorders with radiculopathy, lumbar region; M54.5 Low back pain
CPT/HCPCS: 64483; 99152; J0702; J1100; J2250; J3010

== ENCOUNTER → 2019-05-23 06:49 | Outpatient (CLI) | payer OTHER, SELFPAY ==
[2019-05-23 08:06] LABS: Hemoglobin A1C% w Est Avg Glu 5.7 % (4.0-6.0)
[2019-05-23 08:20] LABS: BUN Creatinine Ratio 12.2 (6-22); Blood Urea Nitrogen 11 mg/dL (9-20); Carbon Dioxide 24 mmol/L (22-32); Chloride 101 mmol/L (98-107); Estimated Glomerular Filt Rate > 60.0 mL/min (>60); Glucose 198 mg/dL (80-110); HEMOLYSIS < 15 (0-50); Potassium 3.6 mmol/L (3.4-5.1); Sodium 140 mmol/L (137-145)
== END ==
PROVIDERS: PCP Family Medicine; Visit Provider Family Medicine
DX: R73.03 Prediabetes (principal)
CPT/HCPCS: 36415; 80048; 83036

== ENCOUNTER → 2019-06-27 06:37 | Outpatient (CLI) | payer OTHER, SELFPAY ==
--- NOTE | 2019-06-27 | DI.MRI.S_ITS ---
PROCEDURE: MR CERVICAL SPINE WO CON INDICATIONS: cervical radiculopathy, ddd TECHNIQUE: Noncontrast sagittal T1 spin echo and T2 fast spin echo, sagittal STIR, foraminal oblique sagittal T2 fast spin echo, and axial gradient echo or T2 fast spin echo through the cervical spine. COMPARISON: [facility], MR, C-SPINE WITHOUT CONTRAST, 12/27/2016, 7:08. [facility], MR, MR CERVICAL SPINE WO CON, 03/14/2018, 16:55. FINDINGS: Image quality: Excellent. Alignment and Curvature: Minimal anterolisthesis of C5 on C6, unchanged, measuring approximately 2 mm. Alignment otherwise within normal limits. Bone Marrow: Marrow demonstrates normal overall signal. Spinal Cord: Visualized spinal cord has normal size and signal. No cerebellar tonsillar herniation. Paraspinous Soft Tissues: No paravertebral masses. Prevertebral soft tissues are normal in thickness. C2-C3: Unchanged. Minimal canal stenosis. Bilateral mild facet hypertrophy. Mild bilateral foraminal narrowing. C3-C4: Congenital canal stenosis. Moderate canal stenosis. Large right uncovertebral joint osteophyte results in severe right foraminal narrowing. Moderate left foraminal narrowing. Bilateral facet hypertrophy. C4-C5: Congenital canal stenosis. Moderate overall canal stenosis. Marked left facet hypertrophy. Severe right facet hypertrophy. Severe right foraminal narrowing and moderate to severe left foraminal narrowing. C5-C6: Posterior disc plus osteophyte. Mild canal stenosis. Marked left facet hypertrophy, severe right facet hypertrophy. Severe bilateral foraminal stenosis. C6-C7: Diffuse posterior disc plus osteophyte mildly indenting on the left ventral canal. Moderate canal stenosis. Prominent bilateral uncovertebral joint osteophytes. Bilateral facet hypertrophy. Severe bilateral foraminal narrowing. C7-T1: Interval development of a mild central posterior disc protrusion, with minimal disc material extending superior to the disc level in the midline, mildly indenting on the ventral aspect of the cord. Mild canal stenosis. Mild bilateral foraminal stenosis. IMPRESSION: 1. There is extensive diffuse spondylitic change 2. Multilevel canal stenosis again noted, including multilevel moderate stenosis. 3. Multilevel severe bilateral foraminal narrowing as described above. 4. Interval development of a small focal central posterior disc protrusion at C7-T1 which mildly indents on the ventral cord. 5. Multilevel facet arthropathy. Dictated by: Rayray Braun M.D. on 06/27/2019 at 10:47 Approved by: Rayray Branu M.D. on 06/27/2019 at 11:13
--- NOTE | 2019-06-27 | DI.CT.S_ITS ---
PROCEDURE: CT CERVICAL SPINE WO CON INDICATIONS: radiculopathy, ddd TECHNIQUE: Noncontrast 3 mm thick sections acquired from the skull base to the T4 level. Sagittal and coronal reformats were then constructed. For radiation dose reduction, the following was used: automated exposure control, adjustment of mA and/or kV according to patient size. COMPARISON: [facility], MR, C-SPINE WITHOUT CONTRAST, 12/27/2016, 7:08. [facility], MR, MR CERVICAL SPINE WO CON, 06/27/2019, 7:58. [facility], MR, MR CERVICAL SPINE WO CON, 03/14/2018, 16:55. FINDINGS: Image quality: Excellent. Bones: No fractures or dislocations. Visualized superior ribs are intact. There is reversal of the normal cervical lordosis, with the apex at C6-C7. Degenerative changes are seen, with moderate disc space narrowing at C5-C6 and moderate to severe disc space narrowing at C6-C7. Posteriorly projecting endplate osteophytes are seen at C6-C7. There is moderate to severe bilateral neural foraminal narrowing seen at C6-C7, with moderate central canal narrowing. At C5-C6, there is a moderate to severe bilateral neural foraminal narrowing and mild to moderate central canal narrowing. Moderate to severe left-sided facet hypertrophy can be seen at C4-C5 and C5-C6. Focal degenerative change can be seen involving the C1-C2 interface anteriorly, with fragmented osteophytes noted. Soft tissues: Prevertebral soft tissues are normal in thickness. No paravertebral hematomas. No apical pneumothoraces. IMPRESSION: Cervical spine degenerative changes are seen, which are most prominent at C6-C7. Dictated by: Demetrius Tony M.D. on 06/27/2019 at 9:01 Approved by: Demetrius Tony M.D. on 06/27/2019 at 9:05
== END ==
PROVIDERS: PCP Family Medicine; Visit Provider Neurological Surgery
DX: M50.30 Other cervical disc degeneration, unspecified cervical region (principal); M54.16 Radiculopathy, lumbar region
CPT/HCPCS: 72125; 72141